=== PATIENT | female | born 1980 | race Caucasian/White ===

== ENCOUNTER 2017-11-06 18:54 | Outpatient (CLI) | payer OTHER ==
[~2017-11-06] VITALS: Ht 152.4 cm; Wt 77.1 kg
[~2017-11-06 18:54] MED LIST: CLARITIN10 MG PO; FLONASE16 GM NS; GILTUSS TR TAB1 EACH PO; SYNTHROID50 MCG; SYNTHROID75 MCG PO; ZITHROMAX TRI-500 MG PO; ZYRTEC10 MG PO
[2017-11-06] MEDS ORDERED: BUTALB-ACETAMI1 EAC2 (19:06)
== END 2017-11-06 19:25 | disposition home or self-care (01) ==
LOC: PPHC 18:54
DX: Z76.0 Encounter for issue of repeat prescription (principal)

== ENCOUNTER 2017-12-04 15:00 | Outpatient (CLI) | payer OTHER | END 2017-12-04 15:06 | disposition home or self-care (01) | LOC: LAB 15:00 | DX: J10.1 Influenza due to other identified influenza virus with other respiratory manifestations (principal) ==

== ENCOUNTER → 2017-12-04 | Outpatient (CLI) | payer OTHER ==
[~2017-12-04] VITALS: Ht 152.4 cm; Wt 77.1 kg
[~2017-12-04] MED LIST changes: +BUTALB-ACETAMI1 EAC2
== END | disposition home or self-care (01) ==
LOC: PPHC 13:06
DX: J00 Acute nasopharyngitis [common cold] (principal)

== ENCOUNTER 2018-03-24 13:43 | Outpatient (CLI) | payer OTHER | END 2018-03-24 13:49 | disposition home or self-care (01) | LOC: SONOGRAMA 13:43 | DX: E04.8 Other specified nontoxic goiter (principal) ==

== ENCOUNTER 2018-05-28 07:28 | Outpatient (CLI) | payer OTHER | END 2018-05-28 08:24 | disposition home or self-care (01) | LOC: LAB 07:28 | DX: E89.0 Postprocedural hypothyroidism (principal); E78.00 Pure hypercholesterolemia, unspecified; E11.65 Type 2 diabetes mellitus with hyperglycemia ==

== ENCOUNTER 2018-09-22 09:12 | Outpatient (CLI) | payer OTHER | END 2018-09-22 09:15 | disposition home or self-care (01) | LOC: LAB 09:12 | DX: E03.8 Other specified hypothyroidism (principal) ==

== ENCOUNTER 2018-10-15 18:15 | Outpatient (CLI) | payer OTHER | END 2018-10-15 19:14 | disposition home or self-care (01) | LOC: LAB 18:15 | DX: J20.0 Acute bronchitis due to Mycoplasma pneumoniae (principal) ==

== ENCOUNTER 2018-10-16 15:56 | Outpatient (CLI) | payer OTHER | END 2018-10-16 16:13 | disposition home or self-care (01) | LOC: LAB 15:56 | DX: J11.1 Influenza due to unidentified influenza virus with other respiratory manifestations (principal); J06.9 Acute upper respiratory infection, unspecified ==

== ENCOUNTER 2018-12-30 13:48 | Outpatient (CLI) | payer OTHER | END 2018-12-30 17:00 | disposition home or self-care (01) | LOC: MAMO-SONO 13:48 | DX: N64.4 Mastodynia (principal); Z12.31 Encounter for screening mammogram for malignant neoplasm of breast ==

== ENCOUNTER 2019-02-11 08:35 | Outpatient (CLI) | payer OTHER | END 2019-02-11 08:43 | disposition home or self-care (01) | LOC: LAB 08:35 | DX: E03.8 Other specified hypothyroidism (principal); E78.00 Pure hypercholesterolemia, unspecified ==

== ENCOUNTER 2019-05-25 11:16 | Outpatient (CLI) | payer OTHER | END 2019-05-25 11:30 | disposition home or self-care (01) | LOC: SONOGRAMA 11:16 | DX: E04.8 Other specified nontoxic goiter (principal) ==

== ENCOUNTER → 2019-09-29 08:17 | Outpatient (CLI) | payer OTHER | END | disposition home or self-care (01) | LOC: LAB 08:17 | DX: E03.8 Other specified hypothyroidism (principal); E04.8 Other specified nontoxic goiter ==

== ENCOUNTER → 2019-10-08 | Outpatient (CLI) | payer OTHER | END | disposition home or self-care (01) | LOC: LAB 16:49 | DX: J11.1 Influenza due to unidentified influenza virus with other respiratory manifestations (principal); R05 Cough; J06.9 Acute upper respiratory infection, unspecified ==

== ENCOUNTER 2019-12-24 10:31 | Outpatient (CLI) | payer OTHER | END 2019-12-24 10:37 | disposition home or self-care (01) | LOC: LAB 10:31 | DX: J11.1 Influenza due to unidentified influenza virus with other respiratory manifestations (principal); R05 Cough ==

== ENCOUNTER 2020-05-11 07:52 | Outpatient (CLI) | payer OTHER | END 2020-05-11 15:00 | disposition home or self-care (01) | LOC: LAB 07:52 | PROVIDERS: ATTEND Internal Medicine Endocrinology, Diabetes & Metabolism | DX: E03.8 Other specified hypothyroidism (principal); E53.8 Deficiency of other specified B group vitamins ==

== ENCOUNTER 2020-07-26 17:33 | Outpatient (CLI) | payer OTHER | END 2020-07-26 19:15 | disposition home or self-care (01) | LOC: PPH VACUNA 17:33 | DX: Z23 Encounter for immunization (principal) ==

== ENCOUNTER 2020-08-30 12:24 | Outpatient (CLI) | payer OTHER | END 2020-08-30 15:00 | disposition home or self-care (01) | LOC: SONOGRAMA 12:24 | PROVIDERS: ATTEND Internal Medicine Endocrinology, Diabetes & Metabolism | DX: E04.1 Nontoxic single thyroid nodule (principal) ==

== ENCOUNTER 2020-09-06 09:53 | Outpatient (CLI) | payer OTHER | END 2020-09-06 10:09 | disposition home or self-care (01) | LOC: MAMO-SONO 09:53 | PROVIDERS: ATTEND Surgery | DX: N60.11 Diffuse cystic mastopathy of right breast (principal); N60.12 Diffuse cystic mastopathy of left breast ==

== ENCOUNTER 2020-09-14 07:33 | Outpatient (CLI) | payer OTHER | END 2020-09-14 07:41 | disposition home or self-care (01) | LOC: LAB 07:33 | DX: E06.3 Autoimmune thyroiditis (principal) ==

== ENCOUNTER 2020-09-14 10:28 | Outpatient (CLI) | payer OTHER | END 2020-09-14 10:33 | disposition home or self-care (01) | LOC: RAD 10:28 | PROVIDERS: ATTEND General Practice | DX: R05 Cough (principal) ==

== ENCOUNTER 2020-09-15 07:33 | Outpatient (CLI) | payer OTHER | END 2020-09-15 07:37 | disposition home or self-care (01) | LOC: LAB 07:33 | PROVIDERS: ATTEND General Practice | DX: J11.1 Influenza due to unidentified influenza virus with other respiratory manifestations (principal) ==

== ENCOUNTER 2021-03-04 09:19 | Outpatient (CLI) | payer OTHER | END 2021-03-04 09:21 | disposition home or self-care (01) | LOC: LAB 09:19 | PROVIDERS: ATTEND Internal Medicine Endocrinology, Diabetes & Metabolism | DX: E06.3 Autoimmune thyroiditis (principal) ==

== ENCOUNTER 2021-07-21 13:10 | Outpatient (CLI) | payer OTHER | END 2021-07-21 13:25 | disposition home or self-care (01) | LOC: PPH VACUNA 13:10 | PROVIDERS: ATTEND Emergency Medicine Pediatric Emergency Medicine | DX: Z23 Encounter for immunization (principal) ==

== ENCOUNTER 2021-08-16 07:27 | Outpatient (CLI) | payer OTHER | END 2021-08-16 08:45 | disposition home or self-care (01) | LOC: LAB 07:27 | PROVIDERS: ATTEND Internal Medicine Endocrinology, Diabetes & Metabolism | DX: E03.8 Other specified hypothyroidism (principal); E11.65 Type 2 diabetes mellitus with hyperglycemia; E55.9 Vitamin D deficiency, unspecified; E78.00 Pure hypercholesterolemia, unspecified ==

== ENCOUNTER 2022-02-02 06:56 | Outpatient (CLI) | payer OTHER | END 2022-02-02 06:59 | disposition home or self-care (01) | LOC: LAB 06:56 | PROVIDERS: ATTEND Internal Medicine Endocrinology, Diabetes & Metabolism | DX: E06.3 Autoimmune thyroiditis (principal) ==

== ENCOUNTER 2022-02-02 07:15 | Outpatient (CLI) | payer OTHER | END 2022-02-02 07:17 | disposition home or self-care (01) | LOC: SONOGRAMA 07:15 | PROVIDERS: ATTEND Internal Medicine Endocrinology, Diabetes & Metabolism | DX: E04.2 Nontoxic multinodular goiter (principal) ==

== ENCOUNTER 2022-02-08 09:22 | Outpatient (CLI) | payer OTHER | END 2022-02-08 09:28 | disposition home or self-care (01) | LOC: LAB 09:22 | DX: Z20.828 Contact with and (suspected) exposure to other viral communicable diseases (principal) ==

== ENCOUNTER 2022-05-09 07:21 | Outpatient (CLI) | payer OTHER | END 2022-05-09 07:24 | disposition home or self-care (01) | LOC: MAMO-SONO 07:21 | DX: Z12.31 Encounter for screening mammogram for malignant neoplasm of breast (principal); N60.19 Diffuse cystic mastopathy of unspecified breast ==

== ENCOUNTER 2023-02-20 07:23 | Outpatient (CLI) | payer OTHER | END 2023-02-20 07:26 | disposition home or self-care (01) | LOC: SONOGRAMA 07:23 | PROVIDERS: ATTEND Internal Medicine Endocrinology, Diabetes & Metabolism | DX: E04.8 Other specified nontoxic goiter (principal) ==

== ENCOUNTER 2024-05-11 13:12 | Outpatient (CLI) | payer OTHER | END 2024-05-11 13:24 | disposition home or self-care (01) | LOC: MAMO-SONO 13:12 | DX: N60.39 Fibrosclerosis of unspecified breast (principal) ==

== ENCOUNTER 2024-12-17 13:36 | Outpatient (CLI) | payer OTHER | END 2024-12-17 13:44 | disposition home or self-care (01) | LOC: SONOGRAMA 13:36 | PROVIDERS: ATTEND Internal Medicine Endocrinology, Diabetes & Metabolism | DX: E03.8 Other specified hypothyroidism (principal); E04.8 Other specified nontoxic goiter ==